=== PATIENT | male | born 1975 | race Caucasian/White ===

== ENCOUNTER 2016-09-26 19:35 | Emergency (ER) | payer OTHER ==
--- NOTE | 2016-09-26 20:34 | DIAGNOSTIC IMAGING REPORT ---
PROCEDURE: XR CHEST 2 VIEW INDICATION: COUGH TECHNIQUE: PA and lateral views. COMPARISON: None. FINDINGS: Lungs are clear. Heart and mediastinum are normal. Thorax is normal. IMPRESSION: 1. Negative chest.
--- NOTE | 2016-09-26 23:37 | ED NURSING NOTES ---
Clinical Report - Nurses [facility] [address] [place] [address] 09/26/2016 19:34 Patient: JOVANY BUCHANAN TRIAGE Triage time 8. Acuity: LEVEL 3. Chief Complaint: FEVER, COUGH and BODY ACHES. --19:55 Camryn Jackson R.N. 19:48 09/26/16. BP: 147/79. HR: 112. RR: 20. O2 saturation: 96%. Temp: 101.9 F. Pain level now: 11/20. --19:55 Camryn Jackson R.N. Weight: 77.1 kg stated. Height/Length: 64 inches Per Patient. BMI: 29.2. --19:52 Camryn Jackson R.N. Medications Remeron Oral 45 mg, daily. --19:51 Camryn Jackson R.N. Allergies None. --19:51 Camryn Jackson R.N. History Arrived by private vehicle. Historian: patient. Unaccompanied. Primary physician ([facility]). The patient has had chest congestion, chills, fatigue, a headache and photophobia. ( cough with yellow sputum x 4 days, migraine h/a off and on during that 4 days. hasn't slept well). PAST MEDICAL HX: ( depression). SURGERY HX: No history of previous surgery. SOCIAL HX: Never smoker. Occasional alcohol use. History of drug use: marijuana. --19:55 Camryn Jackson R.N. Interventions ID band on patient. To treatment room. --19:55 Camryn Jackson R.N. PHYSICAL ASSESSMENT 19:48. To room via stretcher. Patient gowned. GENERAL / NEURO / PSYCH: Alert. Oriented X 4. Appears anxious. HEENT: Mucous membranes are pink. RESPIRATORY: Respirations not labored. Cough. Chest wall tenderness. CVS: Capillary refill less than 2 seconds. GI / : The patient has had nausea. Abdomen soft. SKIN: Skin is dry. Hot skin. --19:56 Camryn Jackson R.N. NURSING PROGRESS NOTES 19:48. Patient gowned. Head of bed elevated. Reassurance given. Patient identifiers checked. Call light placed in reach. Side rails up. Bed placed in lowest position. Patient ready for evaluation- chart flagged. --19:55 Camryn Jackson R.N. 20:02 09/26/2016 Ibuprofen PO Capsules 800 mg given. Allergies verified and confirmed 5 rights. --20:02 Camryn Jackson R.N. 20:02 09/26/16. Patient transported to radiology by wheelchair with tech. --20:02 Cmaryn Jackson R.N. 20:15. Patient returned from radiology by wheelchair with tech. --20:44 Camryn Jackson R.N. 21:00. ( Pt ambulated to bathroom, steady on feet, no increase in resp effort noted. waiting on radiology report). --21:06 Camryn Jackson R.N. 21:11 09/26/16. BP: 149/74. HR: 99. RR: 12. O2 saturation: 94%. Temp: 99.9 F. Pain level now: 6/10. Additional comments: Pt complained of headache. --21:13 Jaswinder Faust 21:45 09/26/2016 Site #1 started via IV in the left forearm with an 20g angiocath, with aseptic technique and good blood return; one attempt. Blood drawn: rainbow set. Labeled in the presence of the patient and sent to the lab. Saline lock flushed with 10 mL saline. --22:02 Camryn Jackson R.N. 21:45 09/26/2016 Started bag #1 1000 mL IV Fluids IV NS (Saline); at 1000 mL/hr over 1 hour(s) via site #1 via IV pump. IV patency established. IV site checked: no pain, redness, or swelling. IV flushed thoroughly pre- and post-medication administration. --22:03 Camryn Jackson R.N. 21:55 09/26/2016 Morphine IVP 4 mg given over 1 minute(s) via site #1. IV patency established. IV site checked: no pain, redness, or swelling. IV flushed thoroughly pre- and post-medication administration. IVP given by RN. --22:05 Camryn Jackson R.N. 22:30 09/26/16. BP: 126/68. HR: 64. RR: 16. O2 saturation: 96%. Temp: 99.3 F. Pain level now: 09/20. --22:35 Camryn Jackson R.N. 22:30 pt resting quietly, waiting for lab and x-ray results. --22:36 Camryn Jackson R.N. 22:35. Patient ID band checked for patient name and birthdate: patient confirmed. Flu swab obtained by RN via nasal swab. Labeled in the presence of the patient and sent to lab. --22:41 Camryn Jackson R.N. 22:42. Care transferred and report received. --22:42 Maycol Boothe R.N. 23:22 09/26/2016 IV Fluids IV NS Discontinued: bag #1 completed. Total amount infused: 1000 mL. IV patency established. IV site checked: no pain, redness, or swelling. IV flushed thoroughly. --23:22 Jeannette Hdez R.N. 23:25 09/26/2016 Azithromycin PO Tablets 500 mg given. Allergies verified and confirmed 5 rights. --23:25 Jeannette Hdez R.N. DISPOSITION / DISCHARGE 00:00 09/27/2016 Site #1 removed upon discharge. Catheter intact. Pressure dressing applied. --00:00 Jeannette Hdez R.N. 00:01 09/27/16. Condition at departure: improved and stable. The goals identified in the patient's plan of care were met. No learning barriers present. Discharge instructions provided and reviewed with the patient. Reviewed medication(s) side effects, precautions, dosing and course information. Prescription(s) given to the patient. Reviewed referral to a primary care physician for followup. Summary of care provided to patient via paper. Patient verbalized understanding. Written instructions provided in [place]. The patient was discharged home and unaccompanied at time of discharge. He left the Emergency Department ambulatory and via private vehicle. Patient driving. --00:01 Jeannette dHez R.N. 22:30 09/26/16. BP: 126/68. HR: 64. RR: 16. O2 saturation: 96%. Temp: 99.3 F. Pain level now: 09/20. 21:11 09/26/16. BP: 149/74. HR: 99. RR: 12. O2 saturation: 94%. Temp: 99.9 F. Pain level now: 11/20. Additional comments: Pt complained of headache. 19:48 09/26/16. BP: 147/79. HR: 112. RR: 20. O2 saturation: 96%. Temp: 101.9 F. Pain level now: 11/20. --00:01 Jeannette Hdez R.N. Departure time: 00:01 Sep 27 2016. --00:01 Jeannette Hdez R.N. Locked/Released at 09/27/2016 0:01 by Jeannette Hdez R.N.
--- NOTE | 2016-09-26 23:37 | ED NURSING NOTES ---
Clinical Report - Nurses [facility] [address] [place] [address] 09/26/2016 19:34 Patient: JOVANY BUCHANAN TRIAGE Triage time 8. Acuity: LEVEL 3. Chief Complaint: FEVER, COUGH and BODY ACHES. --19:55 Camryn Jackson R.N. 19:48 09/26/16. BP: 147/79. HR: 112. RR: 20. O2 saturation: 96%. Temp: 101.9 F. Pain level now: 11/20. --19:55 Camryn Jackson R.N. Weight: 77.1 kg stated. Height/Length: 64 inches Per Patient. BMI: 29.2. --19:52 Camryn Jackson R.N. Medications Remeron Oral 45 mg, daily. --19:51 Camryn Jackson R.N. Allergies None. --19:51 Camryn Jackson R.N. History Arrived by private vehicle. Historian: patient. [facility]accompan[facility] The patient has had chest congestion, chills, fatigue, a headache and photophobia. ( cough with yellow sputum x 4 days, migraine h/a off and on during that 4 days. hasn't slept well). PAST MEDICAL HX: ( depression). SURGERY HX: No history of previous surgery. SOCIAL HX: Never smoker. Occasional alcohol use. History of drug use: marijuana. --19:55 Camryn Jackson R.N. Interventions ID band on patient. To treatment room. --19:55 Camryn Jackson R.N. PHYSICAL ASSESSMENT 19:48. To room via stretcher. Patient gowned. GENERAL / NEURO / PSYCH: Alert. Oriented X 4. Appears anxious. HEENT: Mucous membranes are pink. RESPIRATORY: Respirations not labored. Cough. Chest wall tenderness. CVS: Capillary refill less than 2 seconds. GI / : The patient has had nausea. Abdomen soft. SKIN: Skin is dry. Hot skin. --19:56 Camryn Jackson R.N. NURSING PROGRESS NOTES 19:48. Patient gowned. Head of bed elevated. Reassurance given. Patient identifiers checked. Call light placed in reach. Side rails up. Bed placed in lowest position. Patient ready for evaluation- chart flagged. --19:55 Camryn Jackson R.N. 20:02 09/26/2016 Ibuprofen PO Capsules 800 mg given. Allergies verified and confirmed 5 rights. --20:02 Camryn Jackson R.N. 20:02 09/26/16. Patient transported to radiology by wheelchair with tech. --20:02 Camryn Jackson R.N. 20:15. Patient returned from radiology by wheelchair with tech. --20:44 Camryn Jackson R.N. 21:00. ( Pt ambulated to bathroom, steady on feet, no increase in resp effort noted. waiting on radiology report). --21:06 Camryn Jackson R.N. 21:11 09/26/16. BP: 149/74. HR: 99. RR: 12. O2 saturation: 94%. Temp: 99.9 F. Pain level now: 6/10. Additional comments: Pt complained of headache. --21:13 Jaswinder Faust 21:45 09/26/2016 Site #1 started via IV in the left forearm with an 20g angiocath, with aseptic technique and good blood return; one attempt. Blood drawn: rainbow set. Labeled in the presence of the patient and sent to the lab. Saline lock flushed with 10 mL saline. --22:02 Camryn Jackson R.N. 21:45 09/26/2016 Started bag #1 1000 mL IV Fluids IV NS (Saline); at 1000 mL/hr over 1 hour(s) via site #1 via IV pump. IV patency established. IV site checked: no pain, redness, or swelling. IV flushed thoroughly pre- and post-medication administration. --22:03 Camryn Jackson R.N. 21:55 09/26/2016 Morphine IVP 4 mg given over 1 minute(s) via site #1. IV patency established. IV site checked: no pain, redness, or swelling. IV flushed thoroughly pre- and post-medication administration. IVP given by RN. --22:05 Camryn Jackson R.N. 22:30 09/26/16. BP: 126/68. HR: 64. RR: 16. O2 saturation: 96%. Temp: 99.3 F. Pain level now: 09/20. --22:35 Camryn Jackson R.N. 22:30 pt resting quietly, waiting for lab and x-ray results. --22:36 Camryn Jackson R.N. 22:35. Patient ID band checked for patient name and birthdate: patient confirmed. Flu swab obtained by RN via nasal swab. Labeled in the presence of the patient and sent to lab. --22:41 Camryn Jackson R.N. 22:42. Care transferred and report received. --22:42 Maycol Boothe R.N. 23:22 09/26/2016 IV Fluids IV NS Discontinued: bag #1 completed. Total amount infused: 1000 mL. IV patency established. IV site checked: no pain, redness, or swelling. IV flushed thoroughly. --23:22 Jeannette Hdez R.N. 23:25 09/26/2016 Azithromycin PO Tablets 500 mg given. Allergies verified and confirmed 5 rights. --23:25 Jeannette Hdez R.N. DISPOSITION / DISCHARGE 00:00 09/27/2016 Site #1 removed upon discharge. Catheter intact. Pressure dressing applied. --00:00 Jeannette Hdez R.N. 00:01 09/27/16. Condition at departure: improved and stable. The goals identified in the patient's plan of care were met. No learning barriers present. Discharge instructions provided and reviewed with the patient. Reviewed medication(s) side effects, precautions, dosing and course information. Prescription(s) given to the patient. Reviewed referral to a primary care physician for followup. Summary of care provided to patient via paper. Patient verbalized understanding. Written instructions provided in [place]. The patient was discharged home and unaccompanied at time of discharge. He left the Emergency Department ambulatory and via private vehicle. Patient driving. --00:01 Jeannette Hdez R.N. 22:30 09/26/16. BP: 126/68. HR: 64. RR: 16. O2 saturation: 96%. Temp: 99.3 F. Pain level now: 09/20. 21:11 09/26/16. BP: 149/74. HR: 99. RR: 12. O2 saturation: 94%. Temp: 99.9 F. Pain level now: 11/20. Additional comments: Pt complained of headache. 19:48 09/26/16. BP: 147/79. HR: 112. RR: 20. O2 saturation: 96%. Temp: 101.9 F. Pain level now: 11/20. --00:01 Jeannette Hdez R.N. Departure time: 00:01 Sep 27 2016. --00:01 Jeannette Hdez R.N. Locked/Released at 09/27/2016 0:01 by Jeannette Hdez R.N.
--- NOTE | 2016-09-26 23:37 | ED ORDER SUMMARY ---
..... Patient: JOVANY BUCHANAN OrderSheet [facility] VisitID: [id number] [address] [place] [address] 41y, M Registration Date/Time: 09/26/2016 ORDER SHEET Weight: 77.1 kg (stated) Allergies: None GENERAL ORDERS: Chest 2V Urgent (19:57 09/26/2016 DDean R.N. per protocol) (Ack 20:09 CHagerty ER Grain Packer) (20:44 DDean R.N.) CBC w Diff Urgent (21:31 09/26/2016 Rafaela Nunez) (Ack 21:34 Diannerty ER Grain Packer) (22:02 DDean R.N.) CMP Urgent (21:31 09/26/2016 Rafaela Nunez) (Ack 21:34 Diannerty ER Grain Packer) (22:02 DDean R.N.) D-Dimer Urgent (21:31 09/26/2016 Rafaela Nunez) (Ack 21:34 Colleen ER Grain Packer) (22:02 DDean R.N.) Rapid Influenza Screen (Nasal Pharyngeal) (...) Urgent (22:10 09/26/2016 Rafaela Nunez) (Ack 22:15 Diannerty ER Grain Packer) (22:37 DDean R.N.) MEDICATION ORDERS: Ibuprofen PO 800 mg (NOW) (19:58 09/26/2016 DDean R.N. per protocol) (Ack 19:58 DDean R.N.) (20:02 DDean R.N.) Azithromycin PO 500 mg (NOW) (23:14 09/26/2016 Rafaela Nunez) (Ack 23:22 EInderbitzen R.N.) (23:25 EInderbitzen R.N.) IV FLUIDS: IV NS : initial bolus none -, then 1000 mL/hr for X1 (NOW) (21:30 09/26/2016 Rafaela Nunez) (Ack 21:31 DDean R.N.) (22:03 DDean R.N.) Morphine IV 4 mg (HIGH ALERT MEDICATION, NOW) (21:54 09/26/2016Robert Russo Dr.) (22:05 Maricarmen Hoyos) ORDER SHEET NOTES: [Electronically signed by Rodney Angelo Dr. (23:40 09/26/2016)] [Electronically signed by Jeannette Hdez R.N. (00:01 09/27/2016)] [Electronically locked/signed by Jeannette Hdez R.N. (00:01 09/27/2016)]
--- NOTE | 2016-09-26 23:37 | ED ORDER SUMMARY ---
..... Patient: JOVANY BUCHANAN OrderSheet [facility] VisitID: [id number] [address] [place] [address] 41y, M Registration Date/Time: 09/26/2016 ORDER SHEET Weight: 77.1 kg (stated) Allergies: None GENERAL ORDERS: Chest 2V Urgent (19:57 09/26/2016 DDean R.N. per protocol) (Ack 20:09 CHagerty ER Yarn Bleaching Machine Operator) (20:44 DDean R.N.) CBC w Diff Urgent (21:31 09/26/2016 Rafaela Nunez) (Ack 21:34 Diannerty ER Yarn Bleaching Machine Operator) (22:02 DDean R.N.) CMP Urgent (21:31 09/26/2016 Rafaela Nunez) (Ack 21:34 Diannerty ER Yarn Bleaching Machine Operator) (22:02 DDean R.N.) D-Dimer Urgent (21:31 09/26/2016 Rafaela Nunez) (Ack 21:34 Colleen ER Yarn Bleaching Machine Operator) (22:02 DDean R.N.) Rapid Influenza Screen (Nasal Pharyngeal) (...) Urgent (22:10 09/26/2016 Rafaela Nunez) (Ack 22:15 Diannerty ER Yarn Bleaching Machine Operator) (22:37 DDean R.N.) MEDICATION ORDERS: Ibuprofen PO 800 mg (NOW) (19:58 09/26/2016 DDean R.N. per protocol) (Ack 19:58 DDean R.N.) (20:02 DDean R.N.) Azithromycin PO 500 mg (NOW) (23:14 09/26/2016 Rafaela Nunez) (Ack 23:22 EInderbitzen R.N.) (23:25 EInderbitzen R.N.) IV FLUIDS: IV NS : initial bolus none -, then 1000 mL/hr for X1 (NOW) (21:30 09/26/2016 Rafaela Nunez) (Ack 21:31 DDean R.N.) (22:03 DDean R.N.) Morphine IV 4 mg (HIGH ALERT MEDICATION, NOW) (21:54 09/26/2016Robert Russo Dr.) (22:05 Maricarmen Hoyos) ORDER SHEET NOTES: [Electronically signed by Rodney Angelo Dr. (23:40 09/26/2016)] [Electronically signed by Jeannette Hdez R.N. (00:01 09/27/2016)] [Electronically locked/signed by Jeannette Hdez R.N. (00:01 09/27/2016)]
--- NOTE | 2016-09-26 23:37 | ED CLINICAL REPORT ---
Clinical Report - Physicians/Mid Levels [facility] [address] [place] [address] 09/26/2016 19:34 Patient: JOVANY BUCHANAN Time Seen: 21:12; initial patient contact. Arrived- By private vehicle. Historian- patient. HISTORY OF PRESENT ILLNESS Chief Complaint: CHEST DISCOMFORT. At its maximum, severity described as moderate. When seen in the E.D., severity described as moderate. Modifying factors- worsened by cough and deep breaths. Not relieved by anything. It is described as burning and it is described as located in the right chest, central chest and left chest area. No radiation. This started about 4 days ago and is still present. It was gradual in onset and has been constant. The patient cannot recall the circumstances at the onset. No nausea, vomiting, difficulty breathing or diaphoresis. Similar symptoms previously: None. Recent medical care: Not recently seen/assessed. REVIEW OF SYSTEMS No fever, chills, pedal edema, calf pain or abdominal pain. All systems otherwise negative, except as recorded above. PAST HISTORY Depression Cx renal insufficiency Elevated liver enzymes. Surgeries: No history of previous surgery. SOCIAL HISTORY Never smoker. History of drug use: marijuana. No alcohol use. ADDITIONAL NOTES The nursing notes have been reviewed. PHYSICAL EXAM Vital Signs: 09/26/2016 19:48 BP: 147/79. HR: 112. RR: 20. O2 saturation: 96%. Temp: 101.9 F. Pain level now: 610. Have been reviewed. Hypertensive. Tachycardic. Respiratory rate normal. Febrile. Oxygen saturation normal. Appearance: Alert. Oriented X3. No acute distress. Eyes: Eyes normal inspection. ENT: Tenderness present to percussion/palpation of the sinuses: mild right and left frontal tenderness. Dry mucous membranes present. Pharyngeal erythema. Neck: Normal inspection. Neck supple. CVS: Normal heart rate and rhythm. Heart sounds normal. Respiratory: No respiratory distress. Breath sounds normal. Chest nontender. Abdomen: Soft and nontender. Bowel sounds normal. Skin: Normal skin color. No rash. Extremities: No calf tenderness. No lower extremity edema. Neuro: Oriented X 3. LABS, X-RAYS, AND EKG Chest X-ray: No acute disease. Normal lung markings present. Normal heart size. Mediastinum normal. Great vessels normal. No infiltrate. Views: PA and lateral. Technique: good. The X-rays were independently viewed by me and interpreted contemporaneously by me. Prior films were not available for comparison. Interpretation time: 22:12. Laboratory Tests: CBC w Diff: (REJI: 09/26/2016 21:50) ( [facility]:03) Final results Test Result Flag Units (Reference) WHITE BLOOD COUNT 7.5 K/uL (4.5-11.5) RED BLOOD COUNT 5.54 M/uL (4.50-5.90) HEMOGLOBIN 16.3 gm/dL (13.5-17.5) HEMATOCRIT 48.1 % (41.0-53.0) MEAN CELL VOLUME 87 fL (80-100) MEAN CORPUSCULAR HGB 29 pg (26-34) MEAN CORPUSCULAR HGB CONC 34 g/dL (31-37) RED CELL DISTRIBUTION WIDTH 15.0 H % (11.6-14.8) PLATELET COUNT 205 K/uL (150-400) NEUTROPHIL % 77.2 H % (50-75) LYMPH % 12.5 L % (25-40) MONO % 10.0 % (3-14) EOSINOPHIL % 0.1 % (0-4) BASOPHIL % 0.2 % (0-2) [id number]: (REJI: 09/26/2016 21:50) ( [facility] 09/26/2016 22:14) Final results Test Result Flag Units (Reference) D-DIMER QUANTITATIVE 0.32 ug/mLFEU (0.27-0.52) The primary value of this quantitative assay relates toits negative predictive value (i.e. exclusion) of pulmonaryembolism/deep vein thrombosis/DIC.Elevated levels of d-dimer may also occur with:, age, cancer, inflammation, liver disease,post-op, infection, hematoma, coronary disease, peripheralarteriopathy, bleeding disorders and thrombolytic treatment.Results should be correlated with other clinical andradiological data.Testing Methodology: Latex Immunoassay CMP: (REJI: 09/26/2016 21:50) ( [facility]sg[facility]cv[facility] 09/26/2016 22:16) Final results Test Result Flag Units (Reference) GLUCOSE 92 mg/dL (70-110) BUN 18 mg/dL (7-18) CREATININE 1.5 H mg/dL (0.6-1.3) Estimated GFR 54.81 mL/min Estimated GFR- >60 mL/min Note: Persistent reduction over 3 months in eGFR<60 mL/min/1.73 m2 defines CKD. Patients with eGFR values>=60 mL/min/1.73 m2 may also have CKD if evidence ofpersistent proteinuria. Additional information may be foundat www.[email or web address].org. SODIUM 137 mmol/L (136-145) POTASSIUM 3.5 mmol/L (3.5-5.1) CHLORIDE 104 mmol/L (98-107) CARBON DIOXIDE 28 mmol/L (21-32) CALCIUM 8.9 mg/dL (8.5-10.1) TOTAL PROTEIN 6.7 g/dL (6.4-8.2) ALBUMIN 3.3 g/dL (3.3-5.0) BILIRUBIN, TOTAL 0.4 mg/dL (0.0-1.0) ALKALINE PHOSPHATASE 47 U/L (46-116) AST (SGOT) 56 H U/L (15-37) ALT (SGPT) 133 H U/L (12-78) Rapid Influenza Screen: (REJI: 09/26/2016 12:35) ( MsgRcvd 09/26/2016 22:57) Final results SPECIMEN DESCRIPTION: ... Test Result Flag Units (Reference) RAPID INFLUENZA SCREEN CALLED TO: N/A -- DATE: 09/26/16 INFLUENZA A: NEGATIVE SCREEN FOR INFLUENZA A INFLUENZA B: NEGATIVE SCREEN FOR INFLUENZA B . PROGRESS AND PROCEDURES Disposition: Discharged home in good and improved condition. Condition: good. CLINICAL IMPRESSION Acute frontal sinusitis INSTRUCTIONS Prescription Medications: Zithromax take 1 orally every day for 4 days. Total course 4 days. No refills. Substitution is permissible. (Patient received loading dose in the ED) Tramadol 50 mg: take 1 orally every 6 hours as needed for pain. Do not take more than 8 tablets in a 24 hour period. Dispense twenty (20). No refills. Follow-up: Follow up with your doctor in about two days. Call for an appointment. Screening today revealed the patient's blood pressure to be in the pre-hypertensive range. The patient should follow up with a primary care provider for blood pressure management. (Electronically signed by Rodney Angelo Dr. 09/26/2016 23:40)
--- NOTE | 2016-09-27 00:02 | ED MED RECONCILIATION SUMMARY ---
Patient: JOVANY BUCHANAN Medication Reconciliation Report [facility] VisitID: [id number] [address] [place] [address] 41y, M Registration Date/Time: 09/26/2016 Weight: 77.1 kg Height/Length: 64 in. BMI: 29.2 ALLERGIES: None The patient's Home Medications are listed below: THE FOLLOWING MEDICATIONS NEED TO BE RECONCILED: Remeron Oral 45 mg, daily The source(s) of the original Home Medication information: Not obtained. The following Medications were given to the patient in the Emergency Department: Ibuprofen [PO] PO 800 mg, administered: 09/26/2016 8:02:00 PM IV NS IV Fluids bolus 0, then 1000 mL/hr, administered: 09/26/2016 9:45:00 PM Morphine [IVP] IVP 4 mg, administered: 09/26/2016 9:55:00 PM Azithromycin [PO] PO 500 mg, administered: 09/26/2016 11:25:00 PM The following Medications were prescribed to the patient: Zithromax take 1 orally every day for 4 days. Total course 4 days. No refills. Substitution is permissible.(Patient received loading dose in the ED) -- Rodney Angelo Dr. Tramadol 50 mg: take 1 orally every 6 hours as needed for pain. Do not take more than 8 tablets in a 24 hour period. Dispense twenty (20). No refills. -- Rodney Angelo Dr.
--- NOTE | 2016-09-27 00:02 | ED MED RECONCILIATION SUMMARY ---
Patient: JOVANY BUCHANAN Medication Reconciliation Report [facility] VisitID: [id number] [address] [place] [address] 41y, M Registration Date/Time: 09/26/2016 Weight: 77.1 kg Height/Length: 64 in. BMI: 29.2 ALLERGIES: None The patient's Home Medications are listed below: THE FOLLOWING MEDICATIONS NEED TO BE RECONCILED: Remeron Oral 45 mg, daily The source(s) of the original Home Medication information: Not obtained. The following Medications were given to the patient in the Emergency Department: Ibuprofen [PO] PO 800 mg, administered: 09/26/2016 8:02:00 PM IV NS IV Fluids bolus 0, then 1000 mL/hr, administered: 09/26/2016 9:45:00 PM Morphine [IVP] IVP 4 mg, administered: 09/26/2016 9:55:00 PM Azithromycin [PO] PO 500 mg, administered: 09/26/2016 11:25:00 PM The following Medications were prescribed to the patient: Zithromax take 1 orally every day for 4 days. Total course 4 days. No refills. Substitution is permissible.(Patient received loading dose in the ED) -- Rodney Angelo Dr. Tramadol 50 mg: take 1 orally every 6 hours as needed for pain. Do not take more than 8 tablets in a 24 hour period. Dispense twenty (20). No refills. -- Rodney Angelo Dr.
--- NOTE | 2016-09-27 00:02 | ED DISCHARGE INSTRUCTIONS ---
Patient: JOVANY BUCHANAN General Instructions [facility] VisitID: [id number] [place] [address] 41y, M Registration Date/Time: 09/26/2016 Acute frontal sinusitis INSTRUCTIONS Prescription Medications: Zithromax take 1 orally every day for 4 days. Total course 4 days. No refills. Substitution is permissible. (Patient received loading dose in the ED) Tramadol 50 mg: take 1 orally every 6 hours as needed for pain. Do not take more than 8 tablets in a 24 hour period. Dispense twenty (20). No refills. Follow-up: Follow up with your doctor in about two days. Call for an appointment. Screening today revealed the patient's blood pressure to be in the pre-hypertensive range. The patient should follow up with a primary care provider for blood pressure management. ADDITIONAL INFORMATION Sinusitis [Abx Tx] The sinuses are air-filled spaces within the bones of the face. They connect to the inside of the nose. Sinusitis is an inflammation of the tissue lining the sinus cavity. Sinus inflammation can occur during a cold or hay-fever (allergies to pollens and other particles in the air) and cause symptoms of sinus congestion and fullness. A sinus infection causes fever, headache and facial pain. There is usually green or yellow drainage from the nose or into the back of the throat (post-nasal drip). Antibiotics are prescribed to treat this condition. Home Care: Drink plenty of water, hot tea, and other liquids to stay well hydrated. This thins the mucus and promotes sinus drainage. Apply heat to the painful areas of the face. Use a towel soaked in hot water. Or, network support administrator the shower and direct the hot spray onto your face. This is a good way to inhale warm water vapor and get heat on your face at the same time. (Cover your mouth and nose with your hands so you can still breathe as you do this.) Use a vaporizer with products such as Vicks VapoRub (contains menthol) at night. Suck on peppermint, menthol or eucalyptus hard candies during the day. An expectorant containing guaifenesin (such as Robitussin), helps to thin the mucus and promote drainage from the sinuses. [id number]-cux-rbsqmwk decongestants may be used unless a similar medicine was prescribed. Nasal sprays work the fastest. Use one that contains phenylephrine (Norberto-synephrine, Sinex and others) or oxymetazoline (Afrin). First blow the nose gently to remove mucus, then apply the drops. Do not use these medicines more often than directed on the label or for more than three days or symptoms may worsen. You may also use tablets containing pseudoephedrine (Sudafed). Many sinus remedies combine ingredients, which may increase side effects. Read the labels or ask the pharmacist for help. NOTE: Persons with high blood pressure should not use decongestants. They can raise blood pressure. Antihistamines are useful if allergies are a cause of your sinusitis. The mildest one is chlorpheniramine (available without a prescription). The dose for adults is 8-12mg three times a day. [NOTE: Do not use chlorpheniramine if you have glaucoma or if you are a man with trouble urinating due to an enlarged prostate.] Claritin (loratidine) is an antihistamine that causes less drowsiness and is a good alternative for daytime use. Do not use nasal rinses or irrigation during an acute sinus infection, unless advised by your doctor. Rinsing may spread the infection to other sinuses. You may use acetaminophen (Tylenol) or ibuprofen (Motrin, Advil) to control pain, unless another pain medicine was prescribed. [ NOTE: If you have chronic liver or kidney disease or ever had a stomach ulcer, talk with your doctor before using these medicines.] (Aspirin should never be used in anyone under 18 years of age who is ill with a fever. It may cause severe liver damage.) Finish the full course, even if you are feeling better after a few days. Follow Up with your doctor or this facility in one week or as instructed by our staff if not improving. Get Prompt Medical Attention if any of the following occur: Facial pain or headache becomes more severe Stiff neck Unusual drowsiness or confusion, or not acting like your normal self Swelling of the forehead or eyelids Vision problems including blurred or double vision Fever of 100.4F (38C) or higher, or as directed by your healthcare provider Seizure Azithromycin Oral tablet What is this medicine? AZITHROMYCIN (az ith lakeshia MYE sin) is a macrolide antibiotic. It is used to treat or prevent certain kinds of bacterial infections. It will not work for colds, flu, or other viral infections. How should I use this medicine? Take this medicine by mouth with a full glass of water. Follow the directions on the prescription label. The tablets can be taken with food or on an empty stomach. If the medicine upsets your stomach, take it with food. Take your medicine at regular intervals. Do not take your medicine more often than directed. Take all of your medicine as directed even if you think your are better. Do not skip doses or stop your medicine early. Talk to your home care physical therapist regarding the use of this medicine in children. Special care may be needed. What side effects may I notice from receiving this medicine? Side effects that you should report to your doctor or health care coordination manager as soon as possible: allergic reactions like skin rash, itching or hives, swelling of the face, lips, or tongue confusion, nightmares or hallucinations dark urine difficulty breathing hearing loss irregular heartbeat or chest pain pain or difficulty passing urine redness, blistering, peeling or loosening of the skin, including inside the mouth white patches or sores in the mouth yellowing of the eyes or skin Side effects that usually do not require medical attention (report to your doctor or health care coordination manager if they continue or are bothersome): diarrhea dizziness, drowsiness headache stomach upset or vomiting tooth discoloration vaginal irritation What may interact with this medicine? Do not take this medicine with any of the following medications: lincomycin This medicine may also interact with the following medications: amiodarone antacids cyclosporine digoxin magnesium nelfinavir phenytoin warfarin What if I miss a dose? If you miss a dose, take it as soon as you can. If it is almost time for your next dose, take only that dose. Do not take double or extra doses. Where should I keep my medicine? Keep out of the reach of children. Store at room temperature between 15 and 30 degrees C (59 and 86 degrees F). Throw away any unused medicine after the expiration date. What should I tell my health care provider before I take this medicine? They need to know if you have any of these conditions: kidney disease liver disease irregular heartbeat or heart disease an unusual or allergic reaction to azithromycin, erythromycin, other macrolide antibiotics, foods, dyes, or preservatives or trying to get breast-feeding What should I watch for while using this medicine? Tell your doctor or health care coordination manager if your symptoms do not improve. Do not treat diarrhea with over the counter products. Contact your doctor if you have diarrhea that lasts more than 2 days or if it is severe and watery. This medicine can make you more sensitive to the sun. Keep out of the sun. If you cannot avoid being in the sun, wear protective clothing and use sunscreen. Do not use sun lamps or tanning beds/booths. Tramadol Hydrochloride Oral tablet What is this medicine? TRAMADOL (TRA ma dole) is a pain reliever. It is used to treat moderate to severe pain in adults. How should I use this medicine? Take this medicine by mouth with a full glass of water. Follow the directions on the prescription label. If the medicine upsets your stomach, take it with food or milk. Do not take more medicine than you are told to take. Talk to your home care physical therapist regarding the use of this medicine in children. Special care may be needed. What side effects may I notice from receiving this medicine? Side effects that you should report to your doctor or health care coordination manager as soon as possible: allergic reactions like skin rash, itching or hives, swelling of the face, lips, or tongue breathing difficulties, wheezing confusion itching light headedness or fainting spells redness, blistering, peeling or loosening of the skin, including inside the mouth seizures Side effects that usually do not require medical attention (report to your doctor or health care coordination manager if they continue or are bothersome): constipation dizziness drowsiness headache nausea, vomiting What may interact with this medicine? Do not take this medicine with any of the following medications: MAOIs like Carbex, Eldepryl, Marplan, Nardil, and Parnate This medicine may also interact with the following medications: alcohol or medicines that contain alcohol antihistamines benzodiazepines bupropion carbamazepine or oxcarbazepine clozapine cyclobenzaprine digoxin furazolidone linezolid medicines for depression, anxiety, or psychotic disturbances medicines for migraine headache like almotriptan, eletriptan, frovatriptan, naratriptan, rizatriptan, sumatriptan, zolmitriptan medicines for pain like pentazocine, buprenorphine, butorphanol, meperidine, nalbuphine, and propoxyphene medicines for sleep muscle relaxants naltrexone phenobarbital phenothiazines like perphenazine, thioridazine, chlorpromazine, mesoridazine, fluphenazine, prochlorperazine, promazine, and trifluoperazine procarbazine warfarin What if I miss a dose? If you miss a dose, take it as soon as you can. If it is almost time for your next dose, take only that dose. Do not take double or extra doses. Where should I keep my medicine? Keep out of the reach of children. Store at room temperature between 15 and 30 degrees C (59 and 86 degrees F). Keep container tightly closed. Throw away any unused medicine after the expiration date. What should I tell my health care provider before I take this medicine? They need to know if you have any of these conditions: brain tumor depression drug abuse or addiction head injury if you frequently drink alcohol containing drinks kidney disease or trouble passing urine liver disease lung disease, asthma, or breathing problems seizures or epilepsy suicidal thoughts, plans, or attempt; a previous suicide attempt by you or a family member an unusual or allergic reaction to tramadol, codeine, other medicines, foods, dyes, or preservatives or trying to get breast-feeding What should I watch for while using this medicine? Tell your doctor or health care coordination manager if your pain does not go away, if it gets worse, or if you have new or a different type of pain. You may develop tolerance to the medicine. Tolerance means that you will need a higher dose of the medicine for pain relief. Tolerance is normal and is expected if you take this medicine for a long time. Do not suddenly stop taking your medicine because you may develop a severe reaction. Your body becomes used to the medicine. This does NOT mean you are addicted. Addiction is a behavior related to getting and using a drug for a non-medical reason. If you have pain, you have a medical reason to take pain medicine. Your doctor will tell you how much medicine to take. If your doctor wants you to stop the medicine, the dose will be slowly lowered over time to avoid any side effects. You may get drowsy or dizzy. Do not drive, use machinery, or do anything that needs mental alertness until you know how this medicine affects you. Do not stand or sit up quickly, especially if you are an older patient. This reduces the risk of dizzy or fainting spells. Alcohol can increase or decrease the effects of this medicine. Avoid alcoholic drinks. You may have constipation. Try to have a bowel movement at least every 2 to 3 days. If you do not have a bowel movement for 3 days, call your doctor or health care coordination manager. Your mouth may get dry. Chewing sugarless gum or sucking hard candy, and drinking plenty of water may help. Contact your doctor if the problem does not go away or is severe. You have been given the following additional information: Sinusitis, Abx Tx Azithromycin Oral tablet Tramadol Hydrochloride Oral tablet (Electronically signed by Rodney Angelo Dr. 09/26/2016 23:40)
--- NOTE | 2016-09-27 00:02 | ED MAR SUMMARY ---
..... Medication Administration Record [facility] [address] [place] [address] Patient: JOVANY BUCHANAN Visit ID: [id number] 41y, M Weight: 77.1 kg Height/Length: 64 in BMI: 29.2 ALLERGIES: None Given 20:02 09/26/2016 Camryn Jackson R.N. Medication Administered: IBUPROFEN [PO], Dose: 800 mg Capsules PO. Medication Ordered: Ibuprofen PO 800 mg (NOW). Start 21:45 09/26/2016 Camryn Jackson R.N., Stop 23:22 09/26/2016 Jeannette Hdez R.N. Medication Administered: IV NS (SALINE), Dose: IV Fluids over 1 hour(s), Rate: 1000 mL/hr, Dispensed: 1000 mL bag, Site: #1 left forearm. Medication Ordered: IV NS : initial bolus none -, then 1000 mL/hr for X1 (NOW). Given 21:55 09/26/2016 Camryn Jackson R.N. Medication Administered: MORPHINE [IVP], Dose: 4 mg IVP over 1 minute(s), Site: #1 left forearm. Medication Ordered: Morphine IV 4 mg (HIGH ALERT MEDICATION, NOW). Given 23:25 09/26/2016 Jeannette Hdez R.N. Medication Administered: AZITHROMYCIN [PO], Dose: 500 mg Tablets PO. Medication Ordered: Azithromycin PO 500 mg (NOW).
--- NOTE | 2016-09-27 00:02 | ED MAR SUMMARY ---
..... Medication Administration Record [facility] [address] [place] [address] Patient: JOVANY BUCHANAN Visit ID: [id number] 41y, M Weight: 77.1 kg Height/Length: 64 in BMI: 29.2 ALLERGIES: None Given 20:02 09/26/2016 Camryn Jackson R.N. Medication Administered: IBUPROFEN [PO], Dose: 800 mg Capsules PO. Medication Ordered: Ibuprofen PO 800 mg (NOW). Start 21:45 09/26/2016 Camryn Jackson R.N., Stop 23:22 09/26/2016 Jeannette Hdez R.N. Medication Administered: IV NS (SALINE), Dose: IV Fluids over 1 hour(s), Rate: 1000 mL/hr, Dispensed: 1000 mL bag, Site: #1 left forearm. Medication Ordered: IV NS : initial bolus none -, then 1000 mL/hr for X1 (NOW). Given 21:55 09/26/2016 Camryn Jackson R.N. Medication Administered: MORPHINE [IVP], Dose: 4 mg IVP over 1 minute(s), Site: #1 left forearm. Medication Ordered: Morphine IV 4 mg (HIGH ALERT MEDICATION, NOW). Given 23:25 09/26/2016 Jeannette Hdez R.N. Medication Administered: AZITHROMYCIN [PO], Dose: 500 mg Tablets PO. Medication Ordered: Azithromycin PO 500 mg (NOW).
== END 2016-09-27 00:01 | disposition home or self-care (01) ==
LOC: ED SRH 19:35
DX: J01.10 Acute frontal sinusitis, unspecified (principal)
CPT/HCPCS: 90100; 91400; 91556; 95059